=== PATIENT | female | born 1970 | race Caucasian/White ===

== ENCOUNTER 2018-02-05 12:49 | Day surgery (SDC) | payer OTHER ==
[2018-02-05] MEDS ORDERED: LIDOCAINE 4% SOLUTION 50 ML BTL (15:37)
[2018-02-05] MEDS ORDERED: MIDAZOLAM 1 MG/ML 2 ML INJ (16:26)
[2018-02-05] MEDS ORDERED: FENTAnyl 50 MCG/ML VIAL (16:26)
== END 2018-02-05 16:44 | disposition home or self-care (01) ==
LOC: GIL 12:49
DX: K44.9 Diaphragmatic hernia without obstruction or gangrene (principal); J04.0 Acute laryngitis
CPT/HCPCS: 43239; 88305